=== PATIENT | female | born 1965 | race Asian ===

== ENCOUNTER 2023-03-09 07:58 | Emergency (ER) | payer OTHER ==
[~2023-03-09] VITALS: Ht 157.5 cm; Wt 72.6 kg
[2023-03-09 08:24] VITALS: BP 105/66; PULSE 122; RESP 20; TEMP 100.2; O2SAT 98
[2023-03-09] MEDS ORDERED: LORA1T1237 PO (10:11)
[2023-03-09] MEDS ORDERED: DEXT118S25 PO (10:11)
[2023-03-09] MEDS ORDERED: ACET-2619 PO (10:11)
[2023-03-09] MEDS ORDERED: ALBU0.0912 IH (10:11)
[2023-03-09] MEDS ORDERED: DOXY-487 PO (10:11)
[2023-03-09 10:48] VITALS: BP 105/66; PULSE 100; RESP 20; TEMP 99; O2SAT 98
== END 2023-03-09 10:49 | disposition home or self-care (01) ==
LOC: MED 07:58
DX: J20.9 Acute bronchitis, unspecified (principal); I10 Essential (primary) hypertension; Z79.899 Other long term (current) drug therapy; Z79.2 Long term (current) use of antibiotics
CPT/HCPCS: 71045; 99283